=== PATIENT | male | born 1985 | race Caucasian/White ===

== ENCOUNTER 2017-04-20 17:39 | Emergency (ER) | payer OTHER ==
[2017-04-20] MEDS ORDERED: Lidocaine/EPINEPHrine/Tetracaine Soln 1 ML TOP ONE (18:11)
[2017-04-20] MEDS ORDERED: Bacitracin Oint 1 GM U/D Packet TOP ONE (18:19)
--- NOTE | 2017-04-20 18:19 | EDM.PDOC ---
ED HPI GENERAL MEDICAL PROBLEM - General Chief Complaint: Skin Complaint Stated Complaint: POSSIBLE INFECTION LT LEG Time Seen by Provider: 04/20/17 18:12 Source of Information: Reports: Patient History Limitations: Reports: No Limitations - History of Present Illness INITIAL COMMENTS - FREE TEXT/NARRATIVE: HISTORY AND PHYSICAL: []32-year-old male presents with an abrasion to the lateral left leg History of Present Illness: []3 days ago was playing baseball and slid into second base, he was safe however has a large abrasion to lateral portion of his lower leg, Review of Systems: As per history of present illness and below otherwise all systems reviewed and negative. Past medical history: As per history of present illness and as reviewed below otherwise noncontributory. Surgical history: As per history of present illness and as reviewed below otherwise noncontributory. Social history: No reported history of drug or alcohol abuse. Family history: As per history of present illness and as reviewed below otherwise noncontributory. Physical exam: Alert and oriented answering questions appropriately HEENT: Atraumatic, normocehpalic, pupils reactive, negative for conjunctival pallor or scleral icterus, mucous membranes moist, throat clear, neck supple, nontender, trachea midline. Lungs: Clear to auscultation, breath sounds equal bilaterally, chest non tender. Heart: S1S2, regular, negative for clicks, rubs, or JVD. Abdomen: Soft, nondistended, nontender. Negative for masses or hepatossplenmegaly. Negative for costovertebral tenderness. Pelvis: Stable nontender. Genitourinary: Deferred. Rectal: Deferred Extremities:Left lower leg with large abrasion, mild heat radiating, erythematous, negative for cords or calf pain. Neurovascular unremarkable. Neuro: Awake, alert, oriented. Cranial nerves II through XII unremarkable. Cerebellum unremarkable. Motor and sensory unremarkable throughout. Exam nonfocal. Diagnostics: [] Therapeutics: [Let gel to abrasion] Impression: [Skin infection] Plan: []Bactrim DS bid for 7 days Follow-up in 2 days for wound reevaluation Note for work off 2 days minimal weightbearing Definitive disposition and diagnosis as appropriate pending reevaluation and review of above. Onset: Sudden Duration: Day(s): (3) left leg Pain Score (Numeric/FACES): 3 - Related Data Allergies Allergy/AdvReac Type Severity Reaction Status Date / Time amoxicillin Allergy Cannot Verified 04/20/17 18:01 Remember cefaclor [From Ceclor] Allergy Cannot Verified 04/20/17 18:01 Remember Home Meds: Home Meds Sulfamethoxazole/Trimethoprim [Bactrim Ds Tablet] 1 each PO BID #20 tablet 04/20 [Rx] Past Medical History - Past Surgical History Musculoskeletal Surgical History: Reports: Arthroscopic Knee, Other (See Below) Other Musculoskeletal Surgeries/Procedures:: Right Hip, Back, Scope Right Knee Social & Family History - Family History Family Medical History: Noncontributory - Tobacco Use Smoking Status *Q: Never Smoker - Caffeine Use Caffeine Use: Reports: Coffee, Energy Drinks - Alcohol Use Days Per Week of Alcohol Use: 1 Number of Drinks Per Day: 2 Total Drinks Per Week: 2 - Recreational Drug Use Recreational Drug Use: No ED ROS GENERAL - Review of Systems Review Of Systems: ROS reveals no pertinent complaints other than HPI. ED EXAM, SKIN/RASH Exam: See Below (See dictation) Course - Vital Signs Last Recorded V/S: Last Vital Signs Temp 36.4 C 04/20/17 17:58 Pulse 60 04/20/17 17:58 Resp 16 04/20/17 17:58 BP 143/47 H 04/20/17 17:58 Pulse Ox 97 04/20/17 17:58 - Orders/Labs/Meds Meds: Medications Discontinued Medications Generic Name Dose Route Start Last Admin Trade Name Russ PRN Reason Stop Dose Admin Bacitracin 3 dose 04/20/17 18:19 04/20/17 19:21 Bacitracin Oint 1 Gm TOP 04/20/17 18:20 3 dose ONETIME ONE Administration Lidocaine/Tetracaine 3 ml 04/20/17 18:11 04/20/17 18:42 Let Soln TOP 04/20/17 18:12 3 ml ONETIME ONE Administration Departure - Departure Time of Disposition: 19:23 Disposition: Home, Self-Care 01 Condition: Good Clinical Impression: Skin infection - Discharge Information Prescriptions: Sulfamethoxazole/Trimethoprim [Bactrim Ds Tablet] 1 each PO BID #20 tablet Instructions: Abrasion, Ckwo-go-Fovi Referrals: [facility] [Outside] PCP,None [Primary Care Provider] - Forms: ED Department Discharge Additional Instructions: The following information is given to patients seen in the emergency department who are being discharged to home. This information is to outline your options for follow-up care. We provide all patients seen in our emergency department with a follow-up referral. The need for follow-up, as well as the timing and circumstances, are variable depending upon the specifics of your emergency department visit. If you don't have a primary care physician on staff, we will provide you with a referral. We always advise you to contact your personal physician following an emergency department visit to inform them of the circumstance of the visit and for follow-up with them and/or the need for any referrals to a consulting specialist. The emergency department will also refer you to a specialist when appropriate. This referral assures that you have the opportunity for followup care with a specialist. All of these measure are taken in an effort to provide you with optimal care, which includes your followup. Under all circumstances we always encourage you to contact your private physician who remains a resource for coordinating your care. When calling for followup care, please make the office aware that this follow-up is from your recent emergency room visit. If for any reason you are refused follow-up, please contact the [facility] emergency department at and asked to speak to the emergency department charge nurse. Prescription has been sent electronically to your pharmacy Note for off work 2 days Habits wound reevaluated in 2 days
[2017-04-20 19:23] VITALS: BP 125/46
== END 2017-04-20 19:35 | disposition home or self-care (01) ==
LOC: MW.ED 17:39
DX: S80.812A Abrasion, left lower leg, initial encounter (principal); L08.9 Local infection of the skin and subcutaneous tissue, unspecified; Z88.1 Allergy status to other antibiotic agents; X58.XXXA Exposure to other specified factors, initial encounter
CPT/HCPCS: 99282; 99283